=== PATIENT | female | born 1985 | race Caucasian/White ===

== ENCOUNTER → 2017-06-06 | Outpatient (CLI) | payer OTHER ==
[2016-02-20 14:13] VITALS: BP 113/76
[~2017-06-06] MED LIST: CIPR500T94 PO; HYOS125E PO; NORE1PAT3 TP; PRED20TA PO; TRAM50TA PO
--- NOTE | 2017-06-06 16:06 | RAD ---
Pelvic ultrasound, 06/06/2017: History: Bilateral pelvic pain Transabdominal and transvaginal scans were obtained. The uterus measures 7.1 x 4.5 x 3.1 cm. A normal central uterine echo is present. Tiny nabothian cysts are noted. There is a 2.3 cm cyst in the right ovary. A 1.3 cm cyst is present in the left ovary. These appear to be simple cysts and are likely physiologic. There is blood flow in both ovaries. The adnexal regions are otherwise unremarkable. No free fluid is evident in the pelvis. IMPRESSION: 1. Single small bilateral ovarian cysts. 2. The pelvic ultrasound is otherwise unremarkable.
== END | disposition home or self-care (01) ==
LOC: US 14:15
PROVIDERS: ATTEND Nurse Practitioner Family
DX: N83.201 Unspecified ovarian cyst, right side (principal); N83.202 Unspecified ovarian cyst, left side; N88.8 Other specified noninflammatory disorders of cervix uteri; N39.0 Urinary tract infection, site not specified
CPT/HCPCS: 76830; 76856

== ENCOUNTER → 2017-07-18 | Outpatient (CLI) | payer OTHER ==
[2016-02-20 14:13] VITALS: BP 113/76
--- NOTE | 2017-07-18 16:06 | RAD ---
Pelvic ultrasound, 07/18/2017: History: Pelvic pain Transabdominal and transvaginal scans were obtained. The uterus measures 7.9 x 4.9 x 3.3 cm. The central uterine echo complex is normal measuring 5 mm in AP dimension. A small Nabothian cyst is present in the cervical region. The left ovary is unremarkable. There is a cyst cluster or septated cyst in the right ovary. It measures 3.4 x 1.7 x 3.3 cm. Blood flow is evident in both ovaries. On the previous study of 06/06/2017 there was a simple appearing 2.3 cm cyst in the right ovary. The adnexal regions are otherwise unremarkable. No significant free fluid is evident in the pelvis. IMPRESSION: 1. Small cyst cluster or septated cyst in the right ovary, likely on a functional basis. Sonographic follow-up is suggested to exclude a neoplastic etiology. 2. The pelvic ultrasound is otherwise unremarkable.
== END | disposition home or self-care (01) ==
LOC: US 14:32
PROVIDERS: ATTEND Obstetrics & Gynecology
DX: Z01.411 Encounter for gynecological examination (general) (routine) with abnormal findings (principal); N83.201 Unspecified ovarian cyst, right side; N88.8 Other specified noninflammatory disorders of cervix uteri; F17.200 Nicotine dependence, unspecified, uncomplicated
CPT/HCPCS: 76830; 76856

== ENCOUNTER → 2017-09-08 | Outpatient (CLI) | payer OTHER ==
[2016-02-20 14:13] VITALS: BP 113/76
--- NOTE | 2017-09-08 15:10 | RAD ---
Pelvic ultrasound-transvaginal, 09/08/2017: History: Follow-up ovarian cyst Transvaginal scans were obtained and compared to a study from 07/18/2017. The uterus measures 7.1 x 4.7 x 2.7 cm. The central uterine echo complex is normal. No uterine abnormality is seen. The left ovary measures 1.3 x 1.3 x 1.1 cm. Blood flow is present in the ovary. The right ovary measures 3.9 x 3.2 x 1.8 cm. There is a cyst cluster or septated cyst in the right ovary. This overall process measures 3.5 x 3.2 x 1.4 cm. It is of similar size when compared to the previous exam. The adnexal regions are otherwise unremarkable. No free fluid is evident in the pelvis. IMPRESSION: 1. Small cyst cluster or septated cyst in the right ovary, unchanged since 07/18/2017. 2. No new pelvic abnormality is detected.
== END | disposition home or self-care (01) ==
LOC: US 12:59
PROVIDERS: ATTEND Obstetrics & Gynecology
DX: N83.201 Unspecified ovarian cyst, right side (principal); F17.200 Nicotine dependence, unspecified, uncomplicated; Z72.89 Other problems related to lifestyle
CPT/HCPCS: 76830

== ENCOUNTER → 2020-03-18 | Outpatient (CLI) | payer OTHER ==
[2016-02-20 14:13] VITALS: BP 113/76
--- NOTE | 2020-03-18 13:32 | RAD ---
US PELVIS W/TV History: Reason: DYSPAREUNIA PELVIC PAIN ABNORMAL BLEEDING / Spl. Instructions: / History: Comparison: April 20, 2018. Technique: Grayscale and color Doppler imaging of the pelvis was performed using transabdominal and transvaginal technique. Findings: The uterus measures 9.0 x 4.4 x 3.8 cm. Heterogeneous appearance of the uterus. Nabothian cyst identified. The endometrial stripe measures 6 mm. Right ovary measures 2.7 x 2.4 x 2.0 cm. Dominant right ovarian follicle measures 1.7 cm. Normal Doppler flow to the right ovary. Left ovary not identified due to positioning and overlying bowel gas. No adnexal masses are seen. IMPRESSION: 1. Heterogeneous appearance of the uterus, may indicate nonspecific inflammation. 2. Left ovary not identified. Electronically signed by: Gómez Dukes DO (03/18/2020 1:30 PM) [id number]
== END | disposition home or self-care (01) ==
LOC: US 12:35
PROVIDERS: ATTEND Obstetrics & Gynecology
DX: N83.01 Follicular cyst of right ovary (principal); N94.10 Unspecified dyspareunia; N93.9 Abnormal uterine and vaginal bleeding, unspecified; N88.8 Other specified noninflammatory disorders of cervix uteri
CPT/HCPCS: 76830; 76856

== ENCOUNTER 2021-11-03 17:56 | Emergency (ER) | payer BC, OTHER ==
[~2021-11-03] VITALS: Ht 170.2 cm; Wt 107.5 kg
[2021-11-03] MEDS ORDERED: FAMOTIDINE 20 MG/2 ML VIAL IVP ONE (18:45)
[2021-11-03] MEDS ORDERED: ONDANSETRON PF 4 MG/2 ML VIAL. IVP ONE (18:45)
[2021-11-03] MEDS ORDERED: IV RINGERS SOLUTION,LACTATED 1,000 ML IV SCH (18:45)
[2021-11-03] MEDS ORDERED: KETOROLAC 30 MG/ML VIAL. IVP ONE (18:45)
--- NOTE | 2021-11-03 18:45 | PHYS DOC ---
Past History Past Medical History: Other Past Surgical History: Other Alcohol Use: None Drug Use: None General Adult EDM: Chief Complaint: FLANK PAIN HPI: HPI: ".. I ve been having really bad left flank pain... It radiates around to my abdomen Brown for. It started about 5:00 tonight and has not let up... I am really nauseated.," Patient is a 36 year old female who presents with above hx and complaints Lt. Flank started 1700 tonight has persisted. Patient has had intermittent waves of severe pain pressure is high in the back abdomen lower in the back seems to radiate around her pelvis currently. Patient denies any trauma. No recent travel. No specific ill contacts. No bad food. Has had a partial hyst erectomy. Patient follows with Dr. Peres Review of Systems: Review of Systems: Constitutional: Denies fever or chills Eyes: Denies change in visual acuity HENT: Denies nasal congestion or sore throat Respiratory: Denies cough or shortness of breath Cardiovascular: Denies chest pain or edema GI: Complains of left-sided abdominal pain, nausea,. Denies vomiting, bloody stools or diarrhea : Denies dysuria Musculoskeletal: Complains of left flank back pain Integument: Denies rash Neurologic: Denies headache, focal weakness or sensory changes Endocrine: Denies polyuria or polydipsia Lymphatic: Denies swollen glands Psychiatric: Denies depression or anxiety Family History: Family History: Noncontributory to presentation Current Medications: Current Meds: See nursing for home meds Allergies: Allergies: Allergies Coded Allergies Type Severity Reaction Last Updated Verified bee venom (honey bee) Allergy Severe Hives 03/08/15 Yes wasp venom Allergy Severe Hives 03/08/15 Yes oxycodone Allergy Unknown 02/20/16 Yes Physical Exam: PE: Constitutional: in acute distress, non-toxic appearance. [] HENT: Normocephalic, atraumatic, bilateral external ears normal, oropharynx moist, no oral exudates, nose normal. [] Eyes: PERRLA, EOMI, conjunctiva normal, no discharge. [] Neck: Normal range of motion, no tenderness, supple, no stridor. [] Cardiovascular:Heart rate regular rhythm, no murmur [] Lungs & Thorax: Bilateral breath sounds clear to auscultation [] Abdomen: Bowel sounds decreased, soft, left flank tenderness, no masses, no pulsatile masses. Old surgery scar Skin: Warm, dry, no erythema, no rash. [] Back: No tenderness, left CVA tenderness. [] Extremities: No tenderness, no cyanosis, no clubbing, ROM intact, no edema. No psoas sign Neurologic: Alert and oriented X 3, normal motor function, normal sensory function, no focal deficits noted. [] Psychologic: Affect anxious, judgement normal, mood normal. [] EKG: EKG: [] Radiology/Procedures: Radiology/Procedures: [[address] [id number] IMAGING REPORT Signed PATIENT: HELEN UMAÑA ACCOUNT: [id number] : 1985 LOCATION: ER AGE: 36 SEX: F EXAM STATUS: REG ER ORD. PHYSICIAN: NEVILLE CASON MD REASON: Left sided abdomen and flank pain- renal colic PROCEDURE: CT ABDOMEN PELVIS WO CONTRAST Exam Date: 11/03/2021 10:[address] ABDOMEN+PELVIS WO Indication: Reason: Left sided abdomen and flank pain- renal colic / Spl. Instructions: / History: . TECHNIQUE: CT examination of the abdomen and pelvis was performed without oral or intravenous contrast. One or more of the following dose reduction techniques were utilized: *Automated exposure control (AEC) *Adjustment of mA and/or kV according to patient size *Use of iterative reconstruction technique *CT scan done according to ALARA, or ALARA/IMAGE GENTLY FINDINGS: The visualized lung bases are clear. There is a calcified gallstone. The liver, gallbladder, spleen, pancreas, and adrenal glands are otherwise normal. There is a 4 mm calculus at the left ureterovesicular junction resulting in mild left hydroureteronephrosis. The kidneys are otherwise normal bilaterally. No right hydronephrosis or hydroureter is seen. No right urinary tract calculi are seen. Urinary bladder is normal in appearance. There is no bowel obstruction or inflammation. The appendix is normal. No significant atherosclerotic calcifications are seen. No lymphadenopathy or ascites is seen. Degenerative changes are seen in the spine. IMPRESSION: 4 mm calculus at the left UVJ resulting in mild left hydroureteronephrosis. Electronically signed by: Andrea Yu MD (11/03/2021 10:29 PM) [facility] DICTATED AND SIGNED BY: ANDREA YU MD DATE: 11/03/212220 CC: KRYSTA PERES MD; NEVILLE CASON MD ~][place] [address] IMAGING REPORT Signed PATIENT: HELEN UMAÑA ACCOUNT: [id number] : 1985 LOCATION: ER AGE: 36 SEX: F EXAM STATUS: REG ER ORD. PHYSICIAN: NEVILLE CASON MD REASON: Left flank and anterior abdomen pain PROCEDURE: ACUTE ABDOMEN SERIES Exam Date: 11/03/2021 7:58 PM XR ABDOMEN COMP ACUTE Indication: Reason: Left flank and anterior abdomen pain / Spl. Instructions: / History: . FINDINGS/ IMPRESSION: CHEST: The cardiac silhouette, pulmonary vasculature and lung vang are within normal limits. The osseous structures are intact. ABDOMEN AND PELVIS: There is a non-dilated, non-obstructed bowel gas pattern. Air and fecal matter are seen within the colon. The visualized osseous structures are intact. No definite radiopaque urinary tract calculi are seen. Calcification in the left pelvis is likely a phlebolith, though distal ureteral calculus is not excluded. Correlation with cross-sectional imaging can be performed if clinically indicated. Electronically signed by: Andrea Yu MD (11/03/2021 8:41 PM) [facility] DICTATED AND SIGNED BY: ANDREA YU MD DATE: 11/03/212039 CC: KRYSTA PERES MD; NEVILLE CASON MD ~ Heart Score: C/O Chest Pain: N/A Risk Factors: Risk Factors: DM, Current or recent (<one month) smoker, HTN, HLP, family history of CAD, obesity. Risk Scores: Score 0 - 3: 2.5% MACE over next 6 weeks - Discharge Home Score 4 - 6: 20.3% MACE over next 6 weeks - Admit for Clinical Observation Score 7 - 10: 72.7% MACE over next 6 weeks - Early Invasive Strategies Course & Med Decision Making: Course & Med Decision Making Pertinent Labs and Imaging studies reviewed. (See chart for details) Patient push fluids. Take Tylenol and ibuprofen for pain. May take Zofran 8 mg 4 times a day for nausea. Marked pain may take Vicoprofen. Follow-up with urology of choice to you do not have anyone follow-up with Dr. Brown . Take Flomax daily until stone passed Impression: 1. Renal colic 2. Hematuria 3. Left 4 mm stone at the ureterovesical junction with [place] nephrosis [] Dragon Disclaimer: Dragon Disclaimer: This electronic medical record was generated, in whole or in part, using a voice recognition dictation system. Departure Departure: Referrals: KRYSTA PERES MD (PCP) Scripts Tamsulosin Hcl (FLOMAX) 0.4 Mg Cap.er.24h 0.4 MG PO DAILY for renal colic, #60 CAP.SR Prov: NEVILLE CASON MD 11/03/21 Hydrocodone/Ibuprofen (HYDROCODONE-IBUPROFEN 7.5-200 ) 1 Each Tablet 1 TAB PO PRN Q6HRS PRN for PAIN, #30 TAB 0 Refills Prov: NEVILLE CASON MD 11/03/21 Dragtessy Disclaimer This chart was dictated in whole or in part using Voice Recognition software in a busy, high-work load, and often noisy Emergency Department environment. It may contain unintended and wholly unrecognized errors or omissions. NEVILLE CASON MD Nov 03, 2021 18:45
[2021-11-03 19:19] LABS: BACTERIA,URINE 0 /HPF (0-FEW); CLARITY,URINE CLOUDY; COLOR,URINE YELLOW; GLUCOSE,URINE NEG (NEG); NITRITE,URINE NEG (NEG); RBC,URINE >40 /HPF (0-2); SQUAMOUS EPITHELIAL CELL,UR FEW /LPF; UROBILINOGEN,URINE 0.2 mg/dL (0.2 mg/dL); WBC,URINE 0 /HPF (0-4)
[2021-11-03 19:24] LABS: BARBITURATES NEG (NEG); BENZODIAZEPINES NEG (NEG); CANNABINOIDS NEG (NEG); COCAINE NEG (NEG); METHADONE NEG (NEG); OPIATES NEG (NEG); PHENCYCLIDINE NEG (NEG)
[2021-11-03 19:28] LABS: AMPHETAMINE/METHAMPHETAMINE NEG (NEG)
[2021-11-03 19:45] LABS: BASO % 1 % (0-3); EOS # 0.1 x10^3/uL (0.0-0.7); EOS % 2 % (0-3); HEMATOCRIT 39.4 % (36.0-47.0); HEMOGLOBIN 13.1 g/dL (12.0-15.5); LYMPH % 26 % (24-48); MEAN CORPUSCULAR HEMOGLOBIN 30 pg (25-35); MEAN CORPUSCULAR HGB CONC 33 g/dL (31-37); MEAN CORPUSCULAR VOLUME 90 fL (79-100); MONO # 0.6 x10^3/uL (0.0-1.1); MONO % 7 % (0-9); NEUT # 5.2 x10^3uL (1.8-7.7); NEUT % 65 % (31-73); PLATELET COUNT 218 x10^3/uL (140-400); RED BLOOD COUNT 4.38 x10^6/uL (3.50-5.40); RED CELL DISTRIBUTION WIDTH 13.6 % (11.5-14.5); WHITE BLOOD COUNT 7.9 x10^3/uL (4.0-11.0)
[2021-11-03 19:54] LABS: CALCIUM 9.2 mg/dL (8.5-10.1); CREATININE 1.1 mg/dL (0.6-1.0); GFR 56.2; POTASSIUM 4.1 mmol/L (3.5-5.1)
[2021-11-03 20:00] LABS: ALBUMIN 4.4 g/dL (3.4-5.0); DIRECT BILIRUBIN 0.1 mg/dL (0.0-0.2); TOTAL BILIRUBIN 0.3 mg/dL (0.2-1.0); TOTAL PROTEIN 7.7 g/dL (6.4-8.2)
--- NOTE | 2021-11-03 20:44 | RAD ---
Exam Date: 11/03/2021 7:58 PM XR ABDOMEN COMP ACUTE Indication: Reason: Left flank and anterior abdomen pain / Spl. Instructions: / History: . FINDINGS/ IMPRESSION: CHEST: The cardiac silhouette, pulmonary vasculature and lung vang are within normal limits. The osseous structures are intact. ABDOMEN AND PELVIS: There is a non-dilated, non-obstructed bowel gas pattern. Air and fecal matter are seen within the c olon. The visualized osseous structures are intact. No definite radiopaque urinary tract calculi ar e seen. Calcification in the left pelvis is likely a phlebolith, though distal ureteral calculus is not excluded. Correlation with cross-sectional imaging can be performed if clinically indicated. Electronically signed by: Alfred Yu MD (11/03/2021 8:41 PM) [facility]
[2021-11-03 21:07] VITALS: BP 142/76
[2021-11-03] MEDS ORDERED: TAMS0.4C97 PO (22:01)
[2021-11-03] MEDS ORDERED: HYDR-1179 PO (22:01)
[2021-11-03] MEDS ORDERED: TAMSULOSIN 0.4 MG CAP.ER.24H. PO ONE (22:30)
--- NOTE | 2021-11-03 22:31 | RAD ---
Exam Date: 11/03/2021 10:[address] ABDOMEN+PELVIS WO Indication: Reason: Left sided abdomen and flank pain- renal colic / Spl. Instructions: / History: . TECHNIQUE: CT examination of the abdomen and pelvis was performed without oral or intravenous contra st. One or more of the following dose reduction techniques were utilized: *Automated exposure control (AEC) *Adjustment of mA and/or kV according to patient size *Use of iterative reconstruction technique *CT scan done according to ALARA, or ALARA/IMAGE GENTLY FINDINGS: The visualized lung bases are clear. There is a calcified gallstone. The liver, gallbladder, spleen, pancreas, and adrenal glands are otherwise normal. There is a 4 mm calculus at the left ureterovesicular junction resulting in mild left hydroureteronep hrosis. The kidneys are otherwise normal bilaterally. No right hydronephrosis or hydroureter is seen. No ri ght urinary tract calculi are seen. Urinary bladder is normal in appearance. There is no bowel obstruction or inflammation. The appendix is normal. No significant atherosclerotic calcifications are seen. No lymphadenopathy or ascites is seen. Degenerative changes are seen in the spine. IMPRESSION: 4 mm calculus at the left UVJ resulting in mild left hydroureteronephrosis. Electronically signed by: Alfred Yu MD (11/03/2021 10:29 PM) [facility]
== END 2021-11-03 23:39 | disposition home or self-care (01) ==
LOC: ER 17:56
DX: N13.2 Hydronephrosis with renal and ureteral calculous obstruction (principal); R31.9 Hematuria, unspecified; Z91.030 Bee allergy status; Z91.038 Other insect allergy status; Z88.5 Allergy status to narcotic agent
CPT/HCPCS: 36415; 74022; 74176; 80048; 80076; 80307; 81001; 82150; 83690; 85025; 96361; 96374; 96375; 99285; J1885; J2405; J3490; J7120